=== PATIENT | female | born 1960 | race Caucasian/White ===

== ENCOUNTER 2020-05-16 12:15 | Outpatient (REF) | payer OTHER, SELFPAY ==
--- NOTE | 2020-05-16 | MM_ITS ---
EXAMINATION: MM SCREENING DIGITAL BREAST TOMOSYNTHESIS, BILATERAL CLINICAL INFORMATION: Screening. Asymptomatic. The lifetime risk of breast cancer based on the Tyrer-Cuzick Model is 7%. COMPARISON: Mammography: 03/16/2019, 03/15/2018 TECHNIQUE: Digital breast tomosynthesis is performed in both the craniocaudal and mediolateral oblique views along with computer-aided detection (CAD). Synthesized 2D images are generated from the tomosynthesis. FINDINGS: There are scattered areas of fibroglandular density (ACR BI-RADS breast composition Category b). There are no significant masses, abnormal calcifications, or other abnormalities. Parenchymal pattern is similar to prior studies. There is no significant change. The axilla and skin contours are unremarkable. IMPRESSION: No mammographic evidence of malignancy. ASSESSMENT: BI-RADS 1: Negative RECOMMENDATION: Routine annual mammography screening. This patient's information was entered into a reminder system with a target due date for their next mammogram.
== END 2020-05-16 12:16 | disposition home or self-care (01) ==
LOC: HO.MAMMO 12:15
PROVIDERS: Visit Provider Obstetrics & Gynecology
DX: Z12.31 Encounter for screening mammogram for malignant neoplasm of breast (principal)
CPT/HCPCS: 77063; 77067; 78014

== ENCOUNTER 2021-05-27 08:36 | Outpatient (REF) | payer OTHER, SELFPAY ==
--- NOTE | ~2021-05-27 | MM_ITS ---
EXAMINATION: MM SCREENING DIGITAL BREAST TOMOSYNTHESIS, BILATERAL CLINICAL INFORMATION: Screening. Asymptomatic. The lifetime risk of breast cancer based on the Tyrer-Cuzick Model is 6.0%. COMPARISON: Mammography: May 16, 2020 and studies dating back to July 11, 2014 TECHNIQUE: Digital breast tomosynthesis is performed in both the craniocaudal and mediolateral oblique views along with computer-aided detection (CAD). Synthesized 2D images are generated from the tomosynthesis. FINDINGS: There are scattered areas of fibroglandular density (ACR BI-RADS breast composition Category b). There are no significant masses, abnormal calcifications, or other abnormalities. MM/MM tomosynthesis screening BI IMPRESSION: There are no significant changes from prior study. ASSESSMENT: BI-RADS 1: Negative RECOMMENDATION: Routine annual mammography screening. This patient's information was entered into a reminder system with a target due date for their next mammogram.
== END 2021-05-27 08:37 | disposition home or self-care (01) ==
LOC: HO.MAMMO 08:36
PROVIDERS: Visit Provider Obstetrics & Gynecology
DX: Z12.31 Encounter for screening mammogram for malignant neoplasm of breast (principal)
CPT/HCPCS: 77063; 77067

== ENCOUNTER 2022-06-02 08:10 | Outpatient (REF) | payer OTHER, SELFPAY ==
--- NOTE | ~2022-06-02 | MM_ITS ---
EXAMINATION: MM SCREENING DIGITAL BREAST TOMOSYNTHESIS, BILATERAL CLINICAL INFORMATION: Screening. Asymptomatic. The lifetime risk of breast cancer based on the Tyrer-Cuzick Model is 6%. COMPARISON: Mammography: 05/27/2021, 05/16/2020, 03/16/2019 TECHNIQUE: Digital breast tomosynthesis is performed in both the craniocaudal and mediolateral oblique views along with computer-aided detection (CAD). Synthesized 2D images are generated from the tomosynthesis. FINDINGS: There are scattered areas of fibroglandular density (ACR BI-RADS breast composition Category b). Parenchymal pattern is similar to prior studies. There is no developing density or interval mass or architectural abnormality. The calcifications are similar to prior studies. The axilla and skin contours are unremarkable. No significant changes. MM/MM tomosynthesis screening BI IMPRESSION: No mammographic evidence of malignancy. ASSESSMENT: BI-RADS 2: Benign RECOMMENDATION: Routine annual mammography screening. This patient's information was entered into a reminder system with a target due date for their next mammogram.
--- NOTE | ~2022-06-02 | MM_ITS ---
EXAMINATION: BONE DENSITOMETRY CLINICAL INDICATION: Menopause. COMPARISON: None (current study represents initial baseline exam). TECHNIQUE: Using a [employer] DXA System (software version: 13.1) manufactured by [employer], dual-energy x-ray absorptiometry was performed of the lumbar spine and left hip. The images are of good technical quality. Summary results are attached. FINDINGS: AP SPINE L1-L2 (excluding L3 and L4): The data of L1-L4 has been changed to exclude the L3 and L4 vertebral bodies, because degenerative changes at these levels may cause overestimation of lumbar spine density. BMD 0.980 g/cm2, Z-score 0.1, T-score -1.5, osteopenia. LEFT FEMUR, NECK: BMD 0.654 g/cm2, Z-score -1.3, T-score -2.8, osteoporosis. LEFT FEMUR, TOTAL: BMD 0.705 g/cm2, Z-score -1.2, T-score -2.4, osteopenia. IDENTIFIED RISK FACTORS: Height loss, menopause, hysterectomy, bilateral oophorectomy. HISTORY OF FRACTURE: None listed. MEDICATIONS: Calcium supplements or multivitamin, vitamin D. MM/XR DEXA axial skeleton IMPRESSION: 1. DIAGNOSIS: Osteoporosis based on the lowest T-score value of -2.8 in the femoral neck applying World Health Organization criteria. 2. 10-YEAR FRACTURE RISK PREDICTION, FRAX: According to the guidelines, FRAX calculation should only be performed on patients in the osteopenia bone density category. Therefore, FRAX was not performed on this patient. 3. Treatment Recommendations: NOF guidelines recommend consideration for treatment in postmenopausal women and men age 50 and older presenting with the following: -A hip or vertebral (clinical or morphometric) fracture. -T-score less than or equal to -2.5 at the femoral neck or spine after appropriate evaluation to exclude secondary causes. -Low bone mass at the hip or spine and a 10-year fracture probability by FRAX of greater than or equal to 3% for hip fracture or greater than or equal to 20% for major osteoporotic fracture based on the [place] adapted WHO algorithm. 4. Other Recommendations: All treatment decisions require clinical judgment and consideration of individual patient factors, including patient preferences, comorbidities, previous drug use, risk factors not captured in the FRAX model (e.g. frailty, falls, vitamin D deficiency, increased bone turnover, interval significant decline in bone density) and possible under or overestimation of fracture risk by FRAX. Additional medical evaluation for secondary cause of low bone mineral density may be appropriate. FUTURE SCAN RECOMMENDATION: People with diagnosed cases of osteoporosis or at high risk for fracture should have regular bone mineral density tests. For patients eligible for Medicare, routine testing is allowed once every 2 years. The testing frequency can be increased to one year for patients who have rapidly progressing disease, those who are receiving or discontinuing medical therapy to restore bone mass, or have additional risk factors.
== END 2022-06-02 08:11 | disposition home or self-care (01) ==
LOC: HO.MAMMO 08:10
PROVIDERS: PCP Internal Medicine; Visit Provider Obstetrics & Gynecology
DX: Z12.31 Encounter for screening mammogram for malignant neoplasm of breast (principal); Z13.820 Encounter for screening for osteoporosis; N95.8 Other specified menopausal and perimenopausal disorders; Z78.0 Asymptomatic menopausal state
CPT/HCPCS: 77063; 77067; 77080

== ENCOUNTER 2023-06-08 08:04 | Outpatient (REF) | payer OTHER, SELFPAY ==
--- NOTE | ~2023-06-08 | MM_ITS ---
EXAMINATION: MM SCREENING DIGITAL BREAST TOMOSYNTHESIS, BILATERAL CLINICAL INFORMATION: Screening. Asymptomatic. COMPARISON: Mammography: This study is compared with prior exams dating back to 2017. TECHNIQUE: Digital breast tomosynthesis is performed in both the craniocaudal and mediolateral oblique views along with computer-aided detection (CAD). Synthesized 2D images are generated from the tomosynthesis. FINDINGS: There are scattered areas of fibroglandular density (ACR BI-RADS breast composition Category b). There are no significant masses, abnormal calcifications, or other abnormalities. Few, benign, unchanged calcifications are present in each breast. MM/MM tomosynthesis screening BI IMPRESSION: No mammographic evidence of malignancy. ASSESSMENT: BI-RADS BI-RADS 2 - Benign Findings RECOMMENDATION: Routine annual mammography screening. 1 year F/U This examination should not preclude the clinical evaluation of a suspicious palpable abnormality. This patient's information was entered into a reminder system with a target due date for their next mammogram.
== END 2023-06-08 08:05 | disposition home or self-care (01) ==
LOC: HO.MAMMO 08:04
PROVIDERS: PCP Internal Medicine; Visit Provider Internal Medicine
DX: Z12.31 Encounter for screening mammogram for malignant neoplasm of breast (principal)
CPT/HCPCS: 77063; 77067

== ENCOUNTER → 2023-06-08 08:15 | Outpatient (BNV) | payer OTHER, SELFPAY | PROVIDERS: PCP Internal Medicine; Visit Provider Radiology Diagnostic Radiology | DX: Z12.31 Encounter for screening mammogram for malignant neoplasm of breast (principal) | CPT/HCPCS: 77063; 77067 ==

== ENCOUNTER 2024-06-08 09:36 | Outpatient (REF) | payer OTHER, SELFPAY ==
--- NOTE | ~2024-06-08 | MM_ITS ---
EXAMINATION: MM SCREENING DIGITAL BREAST TOMOSYNTHESIS, BILATERAL CLINICAL INFORMATION: Screening. Asymptomatic. COMPARISON: Mammography: Comparison is made with available priors TECHNIQUE: Digital breast mammography with tomosynthesis is performed in both the craniocaudal and mediolateral oblique views along with computer-aided detection (CAD). FINDINGS: The breasts are heterogeneously dense, which may obscure small masses (ACR BI-RADS breast composition Category c). Left: There are no significant masses, abnormal calcifications, or other abnormalities. Right: Grouped calcifications upper inner breast posterior depth. No suspicious other abnormal findings. MM/MM tomosynthesis screening BI IMPRESSION: Additional imaging is recommended ASSESSMENT: BI-RADS BI-RADS 0 - Incomplete: Needs additional Imaging. RECOMMENDATION: 1. Additional views of the right breast with magnification views. 2. Targeted ultrasound if warranted after review of the additional views. 3. Radiology department staff will contact the patient for additional imaging. Additional Imaging required This examination should not preclude the clinical evaluation of a suspicious palpable abnormality. This patient's information was entered into a reminder system with a target due date for their next mammogram. Electronically signed by: Ana Palomo DO 06/19/2024 04:15 PM [facility]
--- NOTE | ~2024-06-08 | MM_ITS ---
EXAMINATION: BONE DENSITOMETRY CLINICAL INDICATION: Menopause. COMPARISON: Baseline BD dated 06/02/2022. TECHNIQUE: Using a [employer] DXA System (software version: 13.1) manufactured by [employer], dual-energy x-ray absorptiometry was performed of the lumbar spine and left hip. The images are of good technical quality. Summary results are attached. FINDINGS: LEFT FEMUR, NECK: Current: BMD 0.695 g/cm2, Z-score -0.7, T-score -2.5, osteoporosis. Baseline: BMD 0.654 g/cm2. LEFT FEMUR, TOTAL: Current: BMD 0.731 g/cm2, Z-score -0.7, T-score -2.2, osteopenia, 3.7% increase from baseline (<5% change is not significant). Baseline: BMD 0.705 g/cm2. AP SPINE L1-L2 (excluding L3 and L4): The data of L1-L4 has been changed to exclude the L3 and L4 vertebral bodies, because significant degenerative change at these levels may cause overestimation of lumbar spine density. Current: BMD 0.925 g/cm2, Z-score 0.1, T-score -2.0, osteopenia, 5.6% decrease from baseline (<5% change is not significant). Baseline: BMD 0.980 g/cm2. IDENTIFIED RISK FACTORS: Menopause, height loss, hysterectomy, low calcium intake, bilateral oophorectomy, secondary osteoporosis (partial gastrectomy). HISTORY OF FRACTURE: None listed. MEDICATIONS: Calcium or multivitamin. Vitamin D. MM/XR DEXA axial skeleton IMPRESSION: 1. DIAGNOSIS: Osteoporosis based on the lowest T-score value of -2.5 in the femoral neck applying World Health Organization criteria. 2. 10-YEAR FRACTURE RISK PREDICTION, FRAX: According to the guidelines, FRAX calculation should only be performed on patients in the osteopenia bone density category. Therefore, FRAX was not performed on this patient. 3. Treatment Recommendations: NOF guidelines recommend consideration for treatment in postmenopausal women and men age 50 and older presenting with the following: -A hip or vertebral (clinical or morphometric) fracture. -T-score less than or equal to -2.5 at the femoral neck or spine after appropriate evaluation to exclude secondary causes. -Low bone mass at the hip or spine and a 10-year fracture probability by FRAX of greater than or equal to 3% for hip fracture or greater than or equal to 20% for major osteoporotic fracture based on the [place] adapted WHO algorithm. 4. Other Recommendations: All treatment decisions require clinical judgment and consideration of individual patient factors, including patient preferences, comorbidities, previous drug use, risk factors not captured in the FRAX model (e.g. frailty, falls, vitamin D deficiency, increased bone turnover, interval significant decline in bone density) and possible under or overestimation of fracture risk by FRAX. Additional medical evaluation for secondary cause of low bone mineral density may be appropriate. FUTURE SCAN RECOMMENDATION: People with diagnosed cases of osteoporosis or at high risk for fracture should have regular bone mineral density tests. For patients eligible for Medicare, routine testing is allowed once every 2 years. The testing frequency can be increased to one year for patients who have rapidly progressing disease, those who are receiving or discontinuing medical therapy to restore bone mass, or have additional risk factors. Electronically signed by: Carmella Riley MD 06/09/2024 03:18 PM EDT RP
== END 2024-06-08 09:37 | disposition home or self-care (01) ==
LOC: HO.MAMMO 09:36
PROVIDERS: PCP Internal Medicine; Visit Provider Obstetrics & Gynecology
DX: Z12.31 Encounter for screening mammogram for malignant neoplasm of breast (principal); Z13.820 Encounter for screening for osteoporosis; Z78.0 Asymptomatic menopausal state
CPT/HCPCS: 77063; 77067; 77080

== ENCOUNTER → 2024-06-08 09:45 | Outpatient (BNV) | payer OTHER, SELFPAY | PROVIDERS: PCP Internal Medicine; Visit Provider Internal Medicine | DX: Z12.31 Encounter for screening mammogram for malignant neoplasm of breast (principal) | CPT/HCPCS: 77063; 77067 ==

== ENCOUNTER 2024-07-12 12:41 | Outpatient (REF) | payer OTHER, SELFPAY ==
--- NOTE | ~2024-07-12 | MM_ITS ---
EXAMINATION: MM DIAGNOSTIC DIGITAL BREAST TOMOSYNTHESIS, RIGHT CLINICAL INFORMATION: Call back from screening for grouped calcifications in the right breast. COMPARISON: Mammography: Comparison is made with available prior examinations. TECHNIQUE: Digital breast tomosynthesis is performed in both the craniocaudal and mediolateral oblique views along with computer-aided detection (CAD). Synthesized 2D images are generated from the tomosynthesis. FINDINGS: There are scattered areas of fibroglandular density (ACR BI-RADS breast composition Category b). Grouped amorphous calcifications in the upper inner breast on magnification views are increased from prior. No suspicious masses or other abnormal findings. MM/MM tomosynthesis added views R IMPRESSION: Grouped amorphous calcifications upper inner breast increased from priors. Recommend histology with stereotactic core needle biopsy at this time. The findings and recommendations were discussed with the patient the procedure will be scheduled. ASSESSMENT: BI-RADS BI-RADS 4 - Suspicious finding RECOMMENDATION: Biopsy recommended Results were discussed with the patient at time of visit. This patient's information was entered into a reminder system with a target due date for their next mammogram. Electronically signed by: Ana Palomo DO 07/12/2024 01:34 PM [facility]
== END 2024-07-12 12:42 | disposition home or self-care (01) ==
LOC: HO.MAMMO 12:41
PROVIDERS: PCP Internal Medicine; Visit Provider Obstetrics & Gynecology
DX: R92.8 Other abnormal and inconclusive findings on diagnostic imaging of breast (principal)
CPT/HCPCS: 77061; 77065

== ENCOUNTER → 2024-07-12 13:00 | Outpatient (BNV) | payer OTHER, SELFPAY | PROVIDERS: PCP Internal Medicine; Visit Provider Internal Medicine | DX: R92.321 Mammographic fibroglandular density, right breast (principal); R92.1 Mammographic calcification found on diagnostic imaging of breast | CPT/HCPCS: 77061; 77065 ==

== ENCOUNTER 2024-08-03 07:52 | Outpatient (REF) | payer OTHER, SELFPAY ==
--- NOTE | ~2024-08-03 | MM_ITS ---
EXAMINATION: STEREOTACTICALLY-GUIDED RIGHT BREAST BIOPSY CLINICAL INFORMATION: Right breast upper inner calcifications. COMPARISON: Comparison is made with available prior examinations. INFORMED CONSENT: After the details of the procedure, as well as the risks (including, but not limited to, bleeding, hematoma formation, and infection), benefits and alternatives (including doing nothing, short-interval follow up, and surgery) to the procedure were explained to the patient in detail and all of her questions were answered, informed written consent was obtained. TECHNIQUE/FINDINGS: A timeout was performed. The lesion intended for biopsy was identified stereotactically and targeted. The skin of the right breast was then cleansed with sterile solution. Using stereotactic guidance, aseptic technique, and 1% lidocaine with and without epinephrine for local anesthesia, a total of 12 cores were obtained through the targeted area with a 9-gauge vacuum-assisted Eviva core biopsy device from a medial approach. Specimen radiography reveals the targeted calcifications in the sampled tissue. At the completion of tissue sampling, a single top hat-shaped metallic clip was deposited at the biopsy site. Adequate sampling was achieved. The postprocedure 2-view direct digital mammogram reveals positioning of the biopsy clip to be 1 cm anterior and medial to the original biopsy site. The patient tolerated the procedure well and, after assuring adequate hemostasis, was discharged in good condition after reviewing postbiopsy breast care instructions. Final pathology results are pending. MM/MM stereotactic biopsy RT IMPRESSION: 1. Uncomplicated stereotactically-guided core biopsy of the right breast. The 2-view direct digital postprocedure mammogram reveals positioning of the biopsy clip to be slightly displaced anterior and medial. 2. Final pathology results are pending. A separate report with final recommendations will be issued once these results are made available. Electronically signed by: Ana Palomo DO 08/03/2024 11:47 AM [facility]
[2024-08-03] MEDS: Lidocaine HCl 1 % 20 ML VIAL 12 ML SUBCUT (11:37)
[2024-08-03] MEDS: Lidocaine HCl 1%/Epi 1:100,000 10 ML VIAL 4 ML SUBCUT (11:39)
[2024-08-03] MEDS: Sodium Bicarbonate 8.4% 50 MEQ/50 ML VIAL SUBCUT (11:40)
== END 2024-08-03 07:53 | disposition home or self-care (01) ==
LOC: HO.MAMMO 07:52
PROVIDERS: Absent Provider Obstetrics & Gynecology; PCP Internal Medicine; Visit Provider Internal Medicine
DX: R92.1 Mammographic calcification found on diagnostic imaging of breast (principal); R92.8 Other abnormal and inconclusive findings on diagnostic imaging of breast
CPT/HCPCS: 19081; 88305; A4648; J2003; J2004

== ENCOUNTER → 2024-08-03 08:00 | Outpatient (BNV) | payer OTHER, SELFPAY | PROVIDERS: Absent Provider Obstetrics & Gynecology; PCP Internal Medicine; Visit Provider Internal Medicine | DX: R92.1 Mammographic calcification found on diagnostic imaging of breast (principal) | CPT/HCPCS: 19081; 77065 ==

== ENCOUNTER → 2025-05-07 09:23 | Outpatient (BNVA) | payer OTHER, SELFPAY | PROVIDERS: PCP Internal Medicine; Visit Provider Emergency Medicine | DX: G57.01 Lesion of sciatic nerve, right lower limb (principal) | CPT/HCPCS: 99202 ==

== ENCOUNTER → 2025-05-14 09:45 | Outpatient (BNVA) | payer OTHER, SELFPAY | PROVIDERS: PCP Internal Medicine; Visit Provider Emergency Medicine | DX: G57.01 Lesion of sciatic nerve, right lower limb (principal) | CPT/HCPCS: 99213 ==

== ENCOUNTER → 2025-05-18 10:34 | Outpatient (BNVA) | payer OTHER, SELFPAY | PROVIDERS: PCP Internal Medicine; Visit Provider Emergency Medicine | DX: G57.01 Lesion of sciatic nerve, right lower limb (principal); Z02.79 Encounter for issue of other medical certificate | CPT/HCPCS: 99213 ==

== ENCOUNTER 2025-06-14 09:27 | Outpatient (REF) | payer OTHER, SELFPAY ==
--- OUTSIDE RECORDS SUMMARY | 2025-06-14 10:52 | XMS_ITS | Encounter Summary ---
Author Organization [facility], Address [address] [place] [address] Phone Care Team Providers Care Painter Set Name Role Phone Steven Bowling MD Primary Care Provider [phone] Encounter Details Date Type Department Care Team (Late st Contact Info) Description 02/04/2023 Documentation Only [facility], [address] [place] [address] Steven Bowling MD [address] [place] [address] [place] [phone] Social History Tobacco Use Types Packs/Day Years Used Date Smoking Tobacco: Never Assessed Comments Unknown Sex and Gender Information Value Date Recorded Sex Assigned at Not on file Legal Sex Female 11:19 AM EDT Gender Identity Not on file Sexual Orientation Not on file documented as of this encounter Plan of Treatment Not on file documented as of this encounter Visit Diagnoses Not on filedocumented in this encounter Care Teams Painter Set Relationship Specialty Start Date End Date Steven Bowling MD [address] [place] [address] [place] [phone] PCP - General Nephrology 02/03/23 documented as of this encounter
--- OUTSIDE RECORDS SUMMARY | 2025-06-14 10:52 | XMS_ITS | Encounter Summary ---
Author Organization [facility], Address [address] [place] [address] Phone Care Team Providers Care Cloth Mercerizer Operator Name Role Phone Steven Bowling MD Primary Care Provider [phone] Encounter Details Date Type Department Care Team (Late st Contact Info) Description 02/04/2023 Documentation Only [facility], [address] [place] [address] Steven Bowling MD [address] [place] [address] [place] [phone] Social History Tobacco Use Types Packs/Day Years [...] on filedocumented in this encounter Care Teams Cloth Mercerizer Operator Relationship Specialty Start Date End Date Steven Bowling MD [address] [place] [address] [place] [phone] PCP - General Nephrology 02/03/23 documented as of this encounter
--- OUTSIDE RECORDS SUMMARY | 2025-06-14 10:52 | XMS_ITS | Encounter Summary ---
Author Organization [facility], Address [address] [place] [address] Phone Care Team Providers Care Industrial Hygenist Name Role Phone Steevn Bowling MD Primary Care Provider [phone] Encounter Details Date Type Department Care Team (Late st Contact Info) Description 02/04/2023 Documentation Only [facility], [address] [place] [address] Steven Bowling MD [address] [place] [address] [place] [phone] Social History Tobacco Use Types Packs/Day Years [...] on filedocumented in this encounter Care Teams Industrial Hygenist Relationship Specialty Start Date End Date Steven Bowling MD [address] [place] [address] [place] [phone] PCP - General Nephrology 02/03/23 documented as of this encounter
--- OUTSIDE RECORDS SUMMARY | 2025-06-14 10:52 | XMS_ITS | Clinical Summary ---
Author Organization [facility] Address [address] [address] Care Team Providers Care Dopeman Name Role Phone Steven Bowling MD Primary Care Provider [phone] Allergies No known active allergies Medications ARIPiprazole (ABILIFY) 2 MG tablet Take 2 mg by mouth 1 (one) time each day Active aspirin (ST RIGO) 81 MG EC tablet Take 81 mg by mouth 1 (one) time each day Active atorvastatin (LIPITOR) 80 MG tablet Take 80 mg by mouth 1 (one) time each day Active Dulaglutide (Trulicity) 1.5 MG/0.5ML solution pen-injector Inject under the skin Active escitalopram (LEXAPRO) 20 MG tablet Take 20 mg by mouth 1 (one) time each day Active gabapentin (NEURONTIN) 100 MG capsule Take 100 mg by mouth in the morning and 100 mg in the evening and 100 mg before bedtime. Active lisinopril 5 MG tablet Take 5 mg by mouth 1 (one) time each day Active LORazepam (ATIVAN) 0.5 MG tablet Take 0.5 mg by mouth every 6 (six) hours if needed for anxiety Active metFORMIN (GLUCOPHAGE) 1000 MG tablet Take 1,000 mg by mouth in the morning and 1,000 mg in the evening. Take with meals. Active pioglitazone (ACTOS) 45 MG tablet Take 45 mg by mouth 1 (one) time each day Active topiramate (TOPAMAX) 25 MG tablet Take 25 mg by mouth in the morning and 25 mg in the evening. Active Active Problems Problem Noted Date Diagnosed Date Gastroesophageal reflux disease 02/04/2023 Essential hypertension 02/04/2023 Iron deficiency anemia 02/04/2023 Nephrolithiasis 02/04/2023 Type 2 diabetes mellitus 02/17/2017 Immunizations Immunization Administration Dates Next Due DTaP 07/23/2010 Hep B, Unspecified 10/05/2006,05/05/2006, 006 Influenza Whole 06/24/2005 Influenza, Quadrivalent, Wit h Preservative 06/17/2021,05/02/2020,05/16/2019,05/02,05/17/2017,06/16/2016 Influenza, Unspecified 04/28/2022,2020,06/03/2021,05/02,04/21/2020,05/23/2019,04/24/2018 ,05/17/2017,06/16/2016,06/16/2015,08/2014,05/16/2014,06/16/2013, 3,07/06/2007,10/05/2006 Pfizer SARS-COV-2 06/03/2021,,09/14/2020,09/14 Pneumococcal Polysaccharide 12/18/2004 Rabies, Unspecified 04/14/2006,03/31/2006,2005 SARS-CoV-2, Unspecified 06/18/2022 Shingrix 12/06/2019,09/26/2019 Td, Unspecified 07/28/1999 Tdap 03/25/2021,11/24/2010 Social History Tobacco Use Types Packs/Day Years Used Date Smoking Tobacco: Never Assessed Comments Unknown Sex and Gender Information Value Date Recorded Sex Assigned at Not on file Legal Sex Female 11:19 AM EDT Gender Identity Not on file Sexual Orientation Not on file Plan of Treatment Health Maintenance Due Date Last Done Comments Breast Cancer Screening 1961 Colorectal Cancer Screening: Annual FOBT 2010 Colorectal Cancer Screening: Colonoscopy 2010 Colorectal Cancer Screening: Sigmoidoscopy 2010 Pneumococcal Vaccine: 50+ Years (2 of 2 - PCV) 2011 12/18/2004 Diabetes: Hemoglobin A1C 01/13/2023 Diabetes: Ophthalmology Exam 01/13/2023 Diabetes: Pedal Pulse Checked 01/13/2023 Diabetes: Sensory Foot Exam 01/13/2023 Diabetes: Visual Foot Exam 01/13/2023 Influenza Vaccine (#1) 2025 2, 06/17/2021, 06/17/2021, Additional history exists Pneumococcal Vaccine: Peds (0 to 5 Years) and At-Risk Patients (6 to 49 Years) Discontinued 12/18/2004 Hepatitis B Vaccine Aged Out 10/05/2006, 05/05/2006, 04/08/2006 No longer eligible based on patient's age to complete this topic Insurance [facility] Care Teams Dopeman Relationship Specialty Start Date End Date Steven Bowling MD [address] [place] [address] [place] [phone] PCP - General Nephrology 02/03/23
--- OUTSIDE RECORDS SUMMARY | 2025-06-14 10:52 | XMS_ITS | Encounter Summary ---
Author Organization [facility], Address [address] [place] [address] Phone Care Team Providers Care Pharmacist Name Role Phone Steven Bowling MD Primary Care Provider [phone] Encounter Details Date Type Department Care Team (Late st Contact Info) Description 02/04/2023 Documentation Only [facility], [address] [place] [address] Steven Bowling MD [address] [place] [address] Dr[place] [phone] Social History Tobacco Use Types Packs/Day Years [...] on filedocumented in this encounter Care Teams Pharmacist Relationship Specialty Start Date End Date Steven Bowling MD [address] [place] [address] [place] [phone] PCP - General Nephrology 02/03/23 documented as of this encounter
--- OUTSIDE RECORDS SUMMARY | 2025-06-14 10:52 | XMS_ITS | Data Portability ---
Author Organization [place] [facility],, CITLALLI PERRY MD Address [address] [address] Care Team Providers Care Tail Worker Name Role Phone HEATHER GOODMAN Primary Care Provider Assessment No assessment recorded. Plan of Treatment Reminders Order Date Submit Date Provider Last Modified By Organization Details Last Modified Time Details Appointments None recorded. Lab cytology report, thin prep, smear or scraping, cervical or vaginal 2024 025 ELVA [facility] (Centralized Electronic Ordering - All Locations), Patient Can Go To The Location Of Their Choice, [id number] 5 16:16:24 hemoglobin , gastrointe stinal, stool 2024 025 [email or web address] 1 In-Office Order, Internal Use Only DO Not Attach Compendium DO Not Attach Compendium, Do Not Delete/merge, [id number] 09:27:07 cytology report, thin prep, smear or scraping, cervical or vaginal 2023 024 ELVA [facility] (Centralized Electronic Ordering - All Locations), Patient Can Go To The Location Of Their Choice, [id number] 4 16:06:17 hemoglobin , gastrointe stinal, stool 2023 024 [email or web address] 1 In-Office Order, Internal Use Only DO Not Attach Compendium DO Not Attach Compendium, Do Not Delete/merge, [id number] 08:31:31 pap, LB, vaginal 2022 023 [facility] (Centralized Electronic Ordering - All Locations), Patient Can Go To The Location Of Their Choice, [id number] 3 07:31:50 fecal occult blood, stool 2022 023 [email or web address] 1 In-Office Order, Internal Use Only DO Not Attach Compendium DO Not Attach Compendium, Do Not Delete/merge, [id number] 3 08:42:43 Referral None recorded. Procedures None recorded. Surgeries None recorded. Imaging MAMMO, screening, digital, bilateral - Breast Aspiration and/or Biopsy if needed 2024 025 [facility] Orders, [address], [address], [place], [address], 5 11:18:55 bone density 2023 024 [facility] (Imaging), [address] [place] [address], [id number], 4 15:22:02 MAMMO, screening, digital, bilateral - Breast Aspiration and/or Biopsy if needed 2023 024 [facility] (Imaging), [address] [place] [address], [address], 4 16:21:19 MAMMO, screening, digital, bilateral - Breast Aspiration and/or Biopsy if needed 2022 023 [facility] [address] [place] [address], [address], 4 07:53:34 Medication Orders cephalexin 500 mg capsule 2023 025 [facility] #[id number], [address], [place], [address], 5 11:16:10 Patient TargetsNo targets recorded. Patient Instructions Encounter Date Encounter Id Patient Instructions Last Modified By Organization Details Last Modified Time 02/10/2023 [id number] learning about healthy weight Not available 02/10/2023 08:42:43 She is here for annual, had acute renal failure and was in hospital 2 months ago in the ICU, they felt it was due to taking ibuprophen. she had dialysis. Was out of work for 4 weeks, just went back to work 2 days ago. IS feeling better. Her SALES MANAGER [place] at the oncology office advised her to stop the oral progesterone. She is not sleeping at all now. __ Note from 2021: She is here for annual exam, doing well after her hysterectomy for mixed call endometrial cancer. Her electronic scale subassembler oncologist approved for her to continue her oral progesterone as she needs it to sleep. She appears to be doing well. Life issues discussed. Monthly self breast exam was taught, and stressed, and is advised to call if she discovers any new mass in the breast. Not available 02/10/2023 08:42:39 02/14/2024 [id number] learning about healthy weight Not available 02/14/2024 08:26:48 She is here for annual, has started trulicity, as the Jardiance was causing dizziness, this seems to be working better for her. She had a hysterectomy with Dr. 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 She had 6 rounds or Rtx. She was out of work from March to June. She started having 2 to 3 hot flashes a day a few months ago, it has decreased to a few a week, she is unsure why. Note from 2022: She is here for annual, had acute renal failure and was in hospital 2 months ago in the ICU, they felt it was due to taking ibuprophen. she had dialysis. Was out of work for 4 weeks, just went back to work 2 days ago. IS feeling better. Her SALES MANAGER [place] at the oncology office advised her to stop the oral progesterone. She is not sleeping at all now. She appears to be doing well. She is advised to contact her PCP abut the hot flashes as they do not appear to be menopausal. Monthly self breast exam was taught, and stressed, and is advised to call if she discovers any new mass in the breast. Not available 02/14/2024 08:31:26 03/24/2024 [id number] cellulitis: care instructions [email or web address] Not available 03/24/2024 10:41:07 She noted a bump on her vulva 2 days ago, it is slowly getting larger. It is slightly tender, noticeable . She sarah not remember any injury in this area. she has been scratching her inner thighs bilaterally due to bug bites. She does not feel ill, has no fevers or chills. She has a past history of uterine cancer, with a mixed cell carcinoma of the endometrium: clear cell 60% and endometrioid carcinoma 40%. This mass does not presently appear to be related to her prior electronic scale subassembler cancer. on exam: left lower vulva above and lateral to the anus there is a 3 cm wide, 0.5 cm deep, induration. There is no erythema. It is slightly tender. There is no break in the skin, it is not pointing. The mass appears to be a cellulitis, superficial, not deep, not pointing. It is not necessarily electronic scale subassembler related, other than the location. It is not a Bartholin's. It does not appear to be a spider bite. Will rx with oral keflex 500 mg TID for a week, she is advised that if it worsens she should go to her PCP or a walk in clinic. There is no way to take a culture, it is not pointing. Face to face discussion, chart review, coordination of care: 25 minutes Not available 03/24/2024 10:54:56 08/21/2024 [id number] She is here at the request of her PCP. She called their office ,and she informed then she had a hematoma on her right breast following her breast biopsy done at [facility] on 08/01/24, and she was advised to call her electric screw driver operator. She notes the mass is the same size now as it was 3 weeks ago. Denies fever or chills. On exam: there is a 7 cm, irregular, hard mass in the right breast at te 9 to 12 o'clock just above the areolae, it is tender, firm, and slightly mobile. It is not pointing. There is ecchymosis around it She is advised that she appears to have a hematoma after biopsy. She is advised to contact [facility] radiology department, let them know, and ask them to have one of the breast surgeons there see her for guidance. She is advised that they may not do anything, and just wait for it to resorb, it is up to them. She understands and agrees. At present there is no sign of infection. Not available 08/21/2024 12:28:14 03/19/2025 [id number] learning about healthy weight Not available 03/19/2025 09:27:07 She is here for annual, it is now 5 years since her mixed cell carcinoma endometrial cancer, she is doing well. _ Note from 2023: She is here for annual, has started trulicity, as the Jardiance was causing dizziness, this seems to be working better for her. She had a hysterectomy with Dr. 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 She had 6 rounds or Rtx. She was out of work from March to June. She started having 2 to 3 hot flashes a day a few months ago, it has decreased to a few a week, she is unsure why. __ She appears to be doing well. Monthly self breast exam was taught, and stressed, and is advised to call if she discovers any new mass in the breast. Not available 03/19/2025 09:27:19 Reason for Referral None Reported. Results Created Date Observation Date Name Description Value Unit Range Abnormal Flag Note LastModifiedBy Organization Detail LastModifiedTime 02/11/20 23 02/10/2023 [facility] OGY results Ted brito Name: ZOFIA SUNNI PERNELL Stanley brito : [id number] (Age: 62) Lab Acces carline #: [id number] Colle ction Date: 2022 Acces carline Date: 2022 Sign Out Date: 2022 Tissu e Sourc e: 1: THINP REP ROLLER TURNER PAP TEST, VAGIN AL: Final Diagn osis: NEGAT ANDRE FOR INTRA EPITH ELIAL LESIO N OR MALIG DUNG . Acute infla mmato ry cells prese nt. Satis facto ry for evalu ation . Endoc ervic al/tr ansfo rmati on zone ABSEN T. Clini lacie Histo ry: Date of Last Menst rual Perio d: not avail able Menst rual Histo ry: Hyste recto my: CERVI X REMOV ED Post- menop ausal Contr acept andre Histo ry: not avail able Ancil naida Testi ng: HPV (ASCU S) Case image d by the ThinP rep Imagi ng Syste m with lizett venegasr pipe g or silas w. Perfo rmed at [facility] ate Refer ence Labor atory depar tment of Cytol ogy, [address] [place] Clini lacie Histo ry (othe r): ROUTI NE, LPS 02/06 NEG, HX OF ENDOM ETRIA L CANCE R Phone #: [phone], On-Ca ll Patho logis t: [id number] Not Available [facility] (Centralized Electronic Ordering - All Locations) Patient Can Go To The Location Of Their Choice, [id number] 02/24/2023 11:35:08 02/11/20 23 02/10/2023 fecal occul t blood , stool Occult Blood negati ve Not Available In-Office Order Internal Use Only DO Not Attach Compendium DO Not Attach Compendium, Do Not Delete/merge, [id number] 02/10/2023 08:17:55 02/14/20 24 02/18/2024 IGP, RFX APTIM A HPV ASCU diagnosis: Commen t NEGAT ANDRE FOR INTRA EPITH ELIAL LESIO N OR MALIMTIAZ DUNG . Not Available [facility] [address] [facility], [place], [address], 02/18/2024 16:06:17 02/14/20 24 02/18/2024 IGP, RFX APTIM A HPV ASCU specimen adequacy: Sarath franks Satis facto ry for evalu ation . Not Available [facility] ([facility]) [address] [place], [address], 02/18/2024 16:06:17 02/14/20 24 02/18/2024 IGP, RFX APTIM A HPV ASCU clinician provided ICD10: Sarath franks Z01.4 19 Not Available [facility] ([facility]) [address] [place], [address], 02/18/2024 16:06:17 02/14/20 24 02/18/2024 IGP, RFX APTIM A HPV ASCU performed by: Sarath mccullough, Princess franks (ASCP ) Not Available [facility] ([facility]) [address] [place], [address], 02/18/2024 16:06:17 02/14/20 24 02/18/2024 IGP, RFX APTIM A HPV ASCU . . Not Available [facility] ([facility]) [address] [place], [address], 02/18/2024 16:06:17 02/14/20 24 02/18/2024 IGP, RFX APTIM A HPV ASCU note: Sarath franks The Pap smear is a scree shin test desig chandni to aid in the detec tion of tobias ligna nt and malig nant condi tions of the uteri ne cervi x. It is not a diagn ostic proce dure and shoul d not be used as the sole means of detec ting cervi lacie cance r. Both false -posi tive and false -nega tive repor ts do occur . Not Available [facility] ([facility]) [address] [place], [address], 02/18/2024 16:06:17 02/14/20 24 02/18/2024 IGP, RFX APTIM A HPV ASCU test methodology: Commen t This liqui d based ThinP rep(R ) pap test was jovita tariq with the use of an image guide nellie yao Not Available [facility] ([facility]) [address] [facility], [place], [address], 02/18/2024 16:06:17 02/14/20 24 02/18/2024 IGP, RFX APTIM A HPV ASCU . Commen t The HPV DNA refle x crite teresita were not met with this speci men resul t there fore, no HPV testi ng was perfo rmed. Not Available [facility] ([facility]) [address] [facility], [place], [address], 02/18/2024 16:06:17 02/14/20 24 02/14/2024 hemog lobin , gastr ointe kareem l, stool Occult Blood negati ve Not Available In-Office Order Internal Use Only DO Not Attach Compendium DO Not Attach Compendium, Do Not Delete/merge, [id number] 02/14/2024 08:03:27 03/19/2003/20/2025 IGP, RFX APTIM A HPV ASCU diagnosis: Commen t NEGAT ANDRE FOR INTRA EPITH ELIAL LESIO N OR MAREN RAZO . Not Available [facility] ([facility]) [address] [facility], [place], [address], 03/20/2025 16:16:24 03/19/20 25 03/20/2025 IGP, RFX APTIM A HPV ASCU specimen adequacy: Commen t Satis facto ry for evalu ation . Not Available [facility] ([facility]) [address] [facility], [place], [address], 03/20/2025 16:16:24 03/19/20 25 03/20/2025 IGP, RFX APTIM A HPV ASCU clinician provided ICD10: Commen t Z01.4 19 Not Available [facility] ([facility]) [address] [facility], [place], [address], 03/20/2025 16:16:24 03/19/20 25 03/20/2025 IGP, RFX APTIM A HPV ASCU performed by: Sarath Olivares , Cytol ogist (ASCP ) Not Available [facility] [address] [facility], [place], [address], 03/20/2025 16:16:24 03/19/20 25 03/20/2025 IGP, RFX APTIM A HPV ASCU . . Not Available [facility] ([facility]) [address] [facility], [place], [address], 03/20/2025 16:16:24 03/19/20 25 03/20/2025 IGP, RFX APTIM A HPV ASCU note: Sarath franks The Pap smear is a scree shin test desimtiaz tariq to aid in the detec tion of tobias ligna nt and malig nant condi tions of the uteri ne cervi x. It is not a diagn ostic proce dure and shoul d not be used as the sole means of detec ting cervi lacie cance r. Both false -posi tive and false -nega tive repor ts do occur . Not Available [facility] ([facility]) [address] [facility], [place], [address], 03/20/2025 16:16:24 03/19/20 25 03/20/2025 IGP, RFX APTIM A HPV ASCU test methodology: Sarath franks This liqui d based ThinP rep(R ) pap test was scree chandni with the use of an image guide nellie yao Not Available [facility] ([facility]) [address] [facility], [place], [address], 03/20/2025 16:16:24 03/19/20 25 03/20/2025 IGP, RFX APTIM A HPV ASCU . Commen t The HPV DNA refle x crite teresita were not met with this speci men resul t there fore, no HPV testi ng was perfo rmed. Not Available [facility] ([facility]) [address] [facility], [place], [address], 03/20/2025 16:16:24 03/19/20 25 03/19/2025 hemog lobin , gastr ointe kareem l, stool Occult Blood negati ve Not Available In-Office Order Internal Use Only DO Not Attach Compendium DO Not Attach Compendium, Do Not Delete/merge, [id number] 03/19/2025 08:47:52 06/09/2006/08/2024 bone densi ty No observ ation record ed. [address] [place], [address], 06/12/2024 10:27:26 06/19/2006/08/2024 MAMMO , scree shin, digit al, bilat eral No observ [facility]ion [facility] [address] [place], [address], 06/23/2024 12:47:49 07/12/2007/12/2024 MAMMO , diagn ostic , digit al, unila teral No observ ation record ed. [address] [place], [address], 07/27/2024 10:29:40 08/15/20 24 08/03/2024 stere otact ic breas t biops y (PROC ) No observ ation record ed. [facility] (Mammo) [address] [place] [address] [place], [address], 08/15/2024 11:04:33 Result Notes None recorded. Problems Name Problem SNOMED Code Status Onset Date Resolution Date Notes Provider Name and Address Organization Details Recorded Time Mammograph y abnormal 702979400 Active Citlalli Perry MD [address], [place], [address], [place] [facility], 6 09:40:53 Amenorrhea 32697981 Active Citlalli Perry MD [address], [place], [address], [place] [facility], 6 09:40:53 Candidal vulvovagin itis 02767032 Active Citlalli Perry MD [address], [place], [address], [place] [facility], 6 09:40:53 Cervicovag inal cytology: Low grade squamous intraepith elial lesion 395232096 Active Citlalli Perry MD [address], [place], [address], [place] [facility], 6 09:40:53 Cytologic finding 292584979 Active Pap 02/2016 ASCUS with HR HPV , colpo 11/2015 negative for dysplasia, pap 11/2015 LGSIL. She has a past history of cervical dysplasia treated in 1996 with LEEP. She has had normal paps since then. She has had the same partner for 20 years, he may have had another partner 2 years ago. Citlalli Perry MD [address], [place], [address], [place] [facility], 9 08:26:38 Menopausal syndrome 459986781 Active Citlalli Perry MD [address], [place], [address], [place] [facility], 6 09:40:53 History of dysplasia of cervix 034606044 Active 1996 s/p LEEP, needs annual pap smear Citlalli Perry MD [address], [place], [address], [place] [facility], 6 09:40:53 Type 2 diabetes mellitus 80639667 Active 2016 Citlalli Perry MD [address], [place], [address], [place] [facility], 7 10:10:39 Hypertensi ve disorder 52306086 Active 2017 Pia emmanuel, [place] [facility], 8 09:55:28 Anxiety disorder 886026343 Active 2017 Citlalli Perry MD [address], [place], [address], [place] [facility], 8 10:17:21 Depressive disorder 90916451 Active 2017 Citlalli Perry MD [address], [place], [address], [place] [facility], 8 10:17:28 Cyst of ovary 85192011 Active 2017 Citlalli Perry MD [address], [place], [address], [place] [facility], 8 10:11:51 Malignant neoplasm of uterus 319715823 Active 2019 had a hysterecto my with Dr. Kirkpatrick in 03/2020 for mixed cell carcinoma of the endometriu m, clear cell carcinoma (60%) and also endometrio id carcinoma (40%). Citlalli Perry MD [address], [place], [address], [place] [facility], 1 09:03:33 History of malignant neoplasm of uterine body 369830188 Active 2021 Citlalli Perry MD [address], [place], [address], [place] [facility], 2 09:21:05 Osteoporos is 53235864 Active 2021 Citlalli Orlando , MD [address], [place], [address], [place] [facility], 2 13:06:42 Acute kidney injury 67089716 Active 2022 Arlen emmanuel [place] - [facility], 3 08:20:15 Problem Notes None recorded. Procedures Surgical History Date Name Laterality Status Provider Name and Address Organization Details Recorded Time 07/04/20 24 Most Recent Mammogram completed Pia Cowart [place] - [facility], 08/21/2024 11:18:25 04/25/20 20 Hernia repair w/mesh completed Arlen Perea [place] - [facility], 02/10/2021 08:25:57 03/18/20 20 hysterectomy completed Citlalli Perry MD [address], [place], [address], [place] - [facility], 02/10/2021 09:15:58 12/16/19 19 Colposcopy completed Citlalli Perry MD [address], [place], [address], [place] - [facility], 12/15/2018 09:54:25 02/24/20 17 Implanon Removal completed Citlalli Perry MD [address], [place], [address], [place] - [facility], 02/23/2017 14:51:24 04/15/20 16 Colposcopy completed Citlalli Perry MD [address], [place], [address], [place] - [facility], 04/15/2016 09:42:20 12/09/19 16 Colposcopy completed Citlalli Perry MD [address], [place], [address], [place] - [facility], 12/09/2015 09:42:24 01/29/20 15 IUD Removal completed Citlalli Perry MD [address], [place], [address], [place] - [facility], 01/28/2015 14:21:54 01/16/20 15 Implanon Insertion completed Citlalli Perry MD [address] [facility],[address], [place], [address], [place] - [facility], 01/15/2015 14:09:15 08/16/19 02 Other completed Pia Mecneerajjairwor [place] - [facility], 10/25/2013 07:59:40 08/16/18 97 Other completed Pia Mecneerajywor [place] - [facility], 10/25/2013 07:59:40 08/16/18 90 Caesarean Section completed Pia Cowart [place] - [facility], 10/25/2013 07:59:40 Imaging Results None recorded. Procedure Notes None recorded. Medical Equipment None Reported. Allergies Allergen ID Allergen Name Allergen Category Reaction Reaction Severity Criticality Documentation Date Start Date Code Code System Note Provider Name and Address Organization Details Recorded Time 84894 oxycodone medicatio n itching severe Not available 02/14/2024 7804 RxNorm alisa emmanuel [place] - [facility], 08:06:00 Medications Name Sig Start Date Stop Date Status Note LastModified by Organization Details LastModified Time atorvastati n calcium 80 mg tabs 06/26 completed Not Available Not Available Not Available mirtazapine 15 mg tabs 04/15 completed Not Available Not Available Not Available bupropion hcl sr 200 mg tb12 active Not Available Not Available Not Available omeprazole 20 mg cpdr active Not Available Not Available N ot Available glipizide er 10 mg tb24 04/15 completed Not Available Not Available Not Available januvia 25 mg tabs active Not Available Not Available Not Available metformin hcl 1000 mg tabs 04/15 completed Not Available Not Available Not Available hydroxyzine pamoate 25 mg caps 04/15 completed Not Available Not Available Not Available citalopram hydrobromid e 10 mg tabs active Not Available Not Available Not Available trazodone hcl 50 mg tabs 04/15 completed Not Available Not Available Not Available lisinopril 5 mg tabs 06/26 completed Not Available Not Available Not Available amoxicillin 500 mg capsule TAKE 1 CAPSULE BY MOUTH THREE TIMES A DAY 08/21 completed Not Available Not Available Not Available pioglitazon e 15 mg tablet 11/25 completed Not Available Not Available Not Available terconazole 0.4 % vaginal cream Insert 1 applicato rful every day by vaginal route for 7 days. 01/19 completed Not Available Not Available Not Available bupropion HCl SR 150 mg tablet,12 hr sustained-r elease active Not Available Not Available Not Available atorvastati n 80 mg tablet TAKE 1 TABLET BY MOUTH EVERY DAY active Not Available Not Available No t Available acetaminoph en 325 mg tablet TAKE 1 TABLET BY MOUTH EVERY 4 HOURS NEEDED FOR PAIN 02/10 completed Not Available Not Available Not Available paroxetine 10 mg tablet 10/15 completed Not Available Not Available Not Available venlafaxine 75 mg tablet TAKE 1 TABLET BY MOUTH EVERY DAY WITH FOOD 02/13 completed Not Available Not Available Not Available Carafate 100 mg/mL oral suspension TAKE 10 MLS BY MOUTH 3 TIMES A DAY BEFORE MEALS AND BEDTIME ON AN EMPTY STOMACH 02/10 completed Not Available Not Available Not Available citalopram 40 mg tablet 10/15 completed Not Available Not Available Not Available trazodone 50 mg tablet TAKE 1 TABLET BY MOUTH EVERY DAY AT BEDTIME NEEDED 02/06 completed Not Available Not Available Not Available miconazole nitrate 2 % topical cream APPLY TO AFFECTED AREA TWICE A DAY FOR 14 DAYS 08/21 completed Not Available Not Available Not Available ibuprofen 800 mg tablet TAKE 1 TABLET BY MOUTH EVERY 8 HOURS 02/10 completed Not Available Not Available Not Available fluconazole 150 mg tablet Take 1 tablet every day by oral route at bedtime for 1 day. active Not Available Not Available No t Available glyburide 2.5 mg tablet active Not Available Not Available Not Available citalopram 10 mg tablet 04/15 completed Not Available Not Available Not Available glipizide ER 10 mg tablet, extended release 24 hr 11/25 completed Not Available Not Available Not Available clonazepam 0.5 mg tablet 10/15 completed Not Available Not Available Not Available venlafaxine ER 150 mg capsule,ext ended release 24 hr TAKE 1 CAPSULE BY MOUTH DAILY WITH FOOD. active Not Available Not Available No t Available pioglitazon e 45 mg tablet TAKE 1 TABLET BY MOUTH EVERY DAY active Not Available Not Available No t Available topiramate 25 mg tablet TAKE 1 TABLET BY MOUTH TWICE A DAY 08/21 completed Not Available Not Available Not Available ciprofloxac in 250 mg tablet 01/11 completed Not Available Not Available Not Available sulfamethox azole 800 mg-trimetho prim 160 mg tablet TAKE 1 TABLET BY MOUTH TWICE A DAY FOR 3 DAYS 03/16 completed Not Available Not Available Not Available amoxicillin 875 mg tablet TAKE 1 TABLET BY MOUTH TWICE A DAY FOR 7 DAYS 03/16 completed Not Available Not Available Not Available citalopram 20 mg tablet 04/15 completed Not Available Not Available Not Available lorazepam 0.5 mg tablet TAKE 1 TABLET (0.5 MG) BY MOUTH EVERY DAY NEEDED active Not Available Not Available No t Available estradiol 1 mg tablet TAKE 1 TABLET BY MOUTH EVERY DAY 02/06 completed Not Available Not Available Not Available meclizine 25 mg tablet TAKE 1 TABLET BY MOUTH 3 TIMES A DAY X7 DAYS NEEDED FOR DIZZINESS 02/10 completed Not Available Not Available Not Available cephalexin 500 mg capsule TAKE 1 CAPSULE BY MOUTH EVERY 8 HOURS FOR 7 DAYS 08/21 completed Not Available Not Available Not Available paroxetine 30 mg tablet 11/25 completed Not Available Not Available Not Available paroxetine 20 mg tablet 11/25 completed Not Available Not Available Not Available hyoscyamine sulfate 0.125 mg tablet 04/15 completed Not Available Not Available Not Available Gas Relief (simethicon e) 80 mg chewable tablet CHEW 1 TABLET BY MOUTH THREE TIMES A DAY AFTER MEALS AND MEDTIME NEEDED FOR GAS active Not Available Not Available No t Available metformin 1,000 mg tablet TAKE 1 TABLET BY MOUTH TWICE A DAY active Not Available Not Available No t Available buspirone 10 mg tablet 10/15 completed Not Available Not Available Not Available progesteron e micronized 200 mg capsule TAKE 1 CAPSULE BY MOUTH EVERYDAY AT BEDTIME 02/10 completed Not Available Not Available Not Available omeprazole 20 mg capsule,del ayed release 02/10 completed Not Available Not Available Not Available lisinopril 5 mg tablet TAKE 1 TABLET BY MOUTH EVERY DAY 02/10 completed Not Available Not Available Not Available gabapentin 100 mg capsule TAKE 1-3 CAPSULES BY MOUTH AT BEDTIME active Not Available Not Available No t Available lorazepam 1 mg tablet 11/25 completed Not Available Not Available Not Available methylpredn isolone 4 mg tablets in a dose pack TAKE 6 TABLETS ON DAY 1 DIRECTED ON PACKAGE AND DECREASE BY 1 TAB EACH DAY FOR A TOTAL OF 6 DAYS 02/10 completed Not Available Not Available Not Available ferrous sulfate 325 mg (65 mg iron) tablet,emily yed release TAKE 1 TABLET BY MOUTH EVERY DAY active Not Available Not Available No t Available ondansetron 4 mg disintegrat ing tablet DISSOLVE 1 TABLET BY MOUTH 3 TIMES A DAY X 5 DAYS NEEDED FOR NAUSEA & VOMITING 02/10 completed Not Available Not Available Not Available fluoxetine 20 mg capsule TAKE ONE CAPSULE BY MOUTH DAILY active Not Available Not Available No t Available dicyclomine 10 mg capsule 01/11 completed Not Available Not Available Not Available glipizide 5 mg tablet Take 1 tablet twice a day by oral route. active Not Available Not Available No t Available amoxicillin 875 mg-potassiu m clavulanate 125 mg tablet TAKE 1 TABLET TWICE A DAY UNTIL GONE. 02/06 completed Not Available Not Available Not Available oxycodone 5 mg tablet TAKE 1 TABLET BY MOUTH EVERY 6 HOURS NEEDED FOR PAIN 02/10 completed Not Available Not Available Not Available DentaGel 1.1 % PLACE GEL IN TRAYS PRIOR TO INSERTING ,WEAR FOR 3 HRS active Not Available Not Available No t Available bupropion HCl SR 200 mg tablet,12 hr sustained-r elease 04/15 completed Not Available Not Available Not Available escitalopra m 10 mg tablet 12/15 completed Not Available Not Available Not Available escitalopra m 20 mg tablet TAKE 1 TABLET BY MOUTH EVERY DAY 08/21 completed Not Available Not Available Not Available Asprin Ec Low Dose 81 mg tablet,emily yed release Take 1 tablet every day by oral route. active Not Available Not Available No t Available bupropion HCl XL 300 mg 24 hr tablet, extended release 11/25 completed Not Available Not Available Not Available bupropion HCl XL 150 mg 24 hr tablet, extended release 11/25 completed Not Available Not Available Not Available escitalopra m 5 mg tablet 08/21 completed Not Available Not Available Not Available nitrofurant oin monohydrate /macrocryst als 100 mg capsule TAKE 1 CAPSULE BY MOUTH TWICE A DAY FOR 5 DAYS 03/16 completed Not Available Not Available Not Available iron active Not Available Not Availa ble Not Available Aspir-81 active Not Available Not Avai lable Not Available lisinopril active Not Available Not Av ailable Not Available metformin active Not Available Not Chula ilable Not Available Wellbutrin active Not Available Not Av ailable Not Available BD Ultra-Fine Short Pen Needle 31 gauge x 12/29 active Not Available Not Available Not Available aripiprazol e 2 mg tablet TAKE 1 TABLET BY MOUTH EVERY DAY 02/13 completed Not Available Not Available Not Available Januvia 25 mg tablet 12/24 completed Not Available Not Available Not Available Januvia 50 mg tablet 11/25 completed Not Available Not Available Not Available peg 3350-electr olytes 236 gram-22.74 gram-6.74 gram-5.86 gram solution USE DIRECTED 02/06 completed Not Available Not Available Not Available Lantus Solostar U-100 Insulin 100 unit/mL (3 mL) subcutaneou s pen 02/10 completed Not Available Not Available Not Available Lantus Solostar U-100 Insulin 02/10 completed Not Available Not Available Not Available GaviLyte-N 420 gram oral solution 06/26 completed Not Available Not Available Not Available Purelax 17 gram/dose oral powder TAKE 17 GM BY MOUTH DAILY 02/10 completed Not Available Not Available Not Available Nexplanon 68 mg subdermal implant Inject 1 implant by subcutane ous route. 10/15 completed Not Available Not Available Not Available Jardiance 10 mg tablet TAKE 1 TABLET BY MOUTH EVERY DAY IN THE MORNING 02/13 completed Not Available Not Available Not Available Jardiance 25 mg tablet TAKE 1 TABLET BY MOUTH EVERY MORNING 02/13 completed Not Available Not Available Not Available Trulicity 1.5 mg/0.5 mL subcutaneou s pen injector INJECT 0.5 ML SUBCUTANE OUSLY EVERY WEEK. ROTATE INJECTION SITES active Not Available Not Available No t Available Trulicity 0.75 mg/0.5 mL subcutaneou s pen injector INJECT 0.5 ML SUBCUTANE OUSLY EVERY WEEK 01/11 completed Not Available Not Available Not Available Vraylar 1.5 mg capsule TAKE 1 CAPSULE BY MOUTH EVERY DAY active Not Available Not Available No t Available Readi-Cat 2 2 % (w/v) oral suspension 02/10 completed Not Available Not Available Not Available Shingrix (PF) 50 mcg/0.5 mL intramuscul ar suspension, kit active Not Available Not Available Not Available Plenvu 140 gram-9 gram-5.2 gram powder packs TAKE 3 PACKET BY MOUTH DIRECTED FOLLOW INSTRUCTI ONS PROVIDED BY DOCTOR IN OFFICE 02/06 completed Not Available Not Available Not Available FreeStyle Arlet 2 Sensor kit USE TO MONITOR GLUCOSE FOR DX TYPE 2 DIABETES MELLITUS active Not Available Not Available No t Available FreeStyle Arlet 2 [place] USE DIRECTED FOR DX TYPE 2 DIABETES MELLITUS active Not Available Not Available No t Available Trulicity 3 mg/0.5 mL subcutaneou s pen injector 0.5 ML SUBCUTANE OUS INJECTION EVERY WEEK,INST R:ROTATE INJECTION SITES active Not Available Not Available No t Available COVID-19 At-Home Test kit FOLLOW INSTRUCTI ONS INCLUDED WITH THE PACKAGE. active Not Available Not Available No t Available Auvelity 45 mg-105 mg tablet, extended release TAKE 1 TABLET BY MOUTH TWICE A DAY active Not Available Not Available No t Available Vitals Date Recorded Body height Body mass index (BMI) Body weight Body temperature Heart rate Systolic And Diastolic Provider Name and Address Organization Details Last Updated DateTime 147.32 cm 21.9 kg/m2 52268.7 6 g 97.3 [degF] 82 /min 167/77 mm[Hg] Pia Cowart MA - [facility], 11:15:38 Date Recorded Body height Body mass index (BMI) Body weight Heart rate Systolic And Diastolic Provider Name and Address Organization Details Last Updated DateTime 02/10/2023 147.32 cm 29.5 kg/m2 14165.52 g 81 /min 146/52 mm[Hg] Arlen Silva [facility], 02/10/2023 08:18:57 Date Recorded Body height Body mass index (BMI) Body weight Body temperature Heart rate Systolic And Diastolic Provider Name and Address Organization Details Last Updated DateTime 4 147.32 cm 22.6 kg/m2 51446.6 9 g 98 [degF] 86 /min 128/67 mm[Hg] alisa Mcdaniels in [facility], 08:04:52 Date Recorded Body height Body mass index (BMI) Body weight Heart rate Systolic And Diastolic Provider Name and Address Organization Details Last Updated DateTime 03/19/2025 147.32 cm 21.8 kg/m2 93068.32 g 84 /min 134/52 mm[Hg] Pia Mcdaniels in [facility], 03/19/2025 08:43:52 Date Recorded Body height Body mass index (BMI) Body weight Body temperature Heart rate Systolic And Diastolic Provider Name and Address Organization Details Last Updated DateTime 147.32 cm 21.8 kg/m2 35359.0 4 g 97.7 [degF] 90 /min 153/67 mm[Hg] Pia Mcdaniels in [facility], 10:24:58 Social History Question Answer Notes LastModified by Organizat ion Details LastModified Time Tobacco Smoking Status Never Smoker Not Available [facility] 06/18/2020 03:19:38 What Is Your Level Of Caffeine Consumption? Moderate [id number] Information not available 06/18/2020 In The 14 Days Before Symptom Onset, Have You Had Close Contact With A Laboratory-confirm ed COVID-19 While That Case Was Ill? No Information n ot available 02/06/2022 In The 14 Days Before Symptom Onset, Have You Had Close Contact With A Person Who Is Under Investigation For COVID-19 While That Person Was Ill? No Information not available 02/06/2022 Have You Been To An Area Known To Be High Risk For COVID-19? No Information not available 02/06/2022 What Type Of Diet Are You Following? REGULAR [id number] Information n ot available 06/18/2020 Which Illicit Or Recreational Drugs Have You Used? No [id number] Information not available 06/18/2020 Do You Reside In Or Have You Traveled To An Area Where Ebola Virus Transmission Is Active? No [id number] Information not available 06/18/2020 Education 2 Year College Information not available 10/25/2013 What Is The Highest Grade Or Level Of School You Have Completed Or The Highest Degree You Have Received? [id number] Information not available 02/06/2022 Who Is Your Employer? Formerly [employer] Information not available 02/06/2022 How Many Days In The Past Year Have You Had A Heavy Drinking Consumption (4+ Female, 5+ Male)? 0 Information no t available 04/15/2016 Are There Any Guns Present In Your Home? No Information not available 02/06/2022 High Number Of Sexual Partners Yes Information not available 03/10/2016 To Which Gender Do You Self-identify? Female Information n ot available 03/10/2016 Marital Status Informatio n not available 10/25/2013 What Was The Date Of Your Most Recent Tobacco Screening? 03/19/2025 Information not available 03/19/2025 What Is Your Relationship Status? Information not available 02/06/2022 Are You Sexually Active? Yes [id number] Information not available 06/18/2020 How Much Tobacco Do You Smoke? No [id number] Information not available 06/18/2020 General Stress Level Medium Information not available 02/10/2021 How Many Years Have You Smoked Tobacco? 0 [id number] Information not available 06/18/2020 Have You Recently (within The Last 12 Weeks, Or During A Current ) Traveled To Or Lived In A Zika-affected Area? No Information not available 03/10/2016 Sex: Female Functional Status Question Answer Note LastModified by Organizat ion Details LastModified Time Do you use any illicit or recreational drugs? No Information not available 02/06/2022 Do you or have you ever used any other forms of tobacco or nicotine? No Information not available 02/06/2022 What is your level of alcohol consumption? None Very rare Information not available 02/06/2022 Do you or have you ever used smokeless tobacco? Never used smokeless tobacco [id number] Information not available 06/18/2020 Are you currently employed? Yes Information not available 02/06/2022 What is your occupation? nurse Information not available 02/06/2022 Do you or have you ever used e-cigarettes or vape? Never used electronic cigarettes [id number] Information not available 06/18/2020 What is your exercise level? None Information not available 02/06/2022 Mental Status Question Answer Note LastModified by Organization D etails LastModified Time Do you feel stressed (tense, restless, nervous, or anxious, or unable to sleep at night)? [id number] Information not available 02/06/2022 Family History Relationship Description Onset Age of this Age Resolved Age Notes LastModified by Organization Details LastModified Time Father Problem cancer ,kidne y Not available 12/09/2015 09:40:15 Father Alzheimer's disease Not available 11/15 09:40:15 Mother Heart disease Not available 11/15 09:40:15 Mother Cerebrovascu lar accident stroke Not available 0 12/09/2015 09:40:15 Mother Diabetes mellitus Not available 11/15 09:40:15 Mother Hypertensive disorder Not available 11/15 09:40:15 Brother Diabetes mellitus x2 Not available 11/15 09:40:15 Maternal Grandmother Heart disease Not available 11/15 09:40:15 Maternal Grandfather Heart disease Not available 11/15 09:40:15 Paternal Grandmother Malignant neoplasm of colon Not available 11/15 09:40:15 Paternal Grandfather Alzheimer's disease Not available 11/15 09:40:15 Unspecified Relation Problem cousin ,kidne y ca Not available 12/09/2015 09:40:15 Medical History Condition Response Anesthesia complications N High Blood Pressure Y Candidate for MyRisk panel N Autoimmune Condition N Kidney or Bladder Problems N Thyroid Problems N Depression Y Lung Disease N GI Problems Y Defects or Inherited Disease N Anemia Y History of Ovarian Cancer N History of Breast Cancer N DIA exposure N BRCA testing in past N Osteopenia N Psychiatric Illness N Anxiety Disorder Y Diabetes Y Arthritis N Headaches or Migraines N Infertility N Asthma N History of Cancer Y Endometriosis N Hepatitis N Heart Disease N Hypertension Y Osteoporosis N Gynecological History Statement/Question Response If Post Menopausal, Age at Menopause 56 Most Recent Bone Density Menses Monthly N Age at Menarche 12 Current Control Method None Most Recent Mammogram 07/04/2024 Age at First Child 22 Hormone Replacement Therapy Y Obstetrics History GPAL:G 3 P 2 0 1 2 Type Value Full Term 2 Spontaneous 1 Living 2 Total 3 Immunizations Vaccine Type Date Status Note Provider Nam e and Address Organization Details Recorded Time Influenza, split virus, trivalent, preservative 3 completed RAVI Brown in [facility], 02/10/2023 08:18:32 Influenza, split virus, trivalent, preservative 4 completed RAVI Brown in [facility], 02/10/2023 08:18:31 Influenza, split virus, trivalent, preservative 5 completed RAVI Cook in [facility], 11/11/2015 08:50:58 Influenza, split virus, quadrivalent, preservative 6 completed RAVI Mooney in [facility], 11/24/2016 09:30:55 Influenza, split virus, quadrivalent, preservative 7 completed RAVI Mooney in [facility], 10/15/2017 09:53:13 Influenza, split virus, quadrivalent, preservative 8 completed RAVI Brown in [facility], 02/10/2023 08:18:31 Influenza, split virus, quadrivalent, preservative 9 completed RAVI Brown in [facility], 02/10/2023 08:18:31 COVID-19, mRNA, LNP-S, PF, 30 mcg/0.3 mL dose 1 completed Arlen Brit null, [place] - [facility], 02/10/2023 08:18:31 COVID-19, mRNA, LNP-S, PF, 30 mcg/0.3 mL dose 1 completed Arlen Brit null, [place] - [facility], 02/10/2023 08:18:31 Influenza, split virus, quadrivalent, preservative 0 completed Arlen Brit null, [place] - [facility], 02/10/2021 08:25:22 Influenza, split virus, quadrivalent, preservative 1 completed Arlen Perea null, [place] - [facility], 02/10/2023 08:18:31 Influenza, MDCK, quadrivalent, PF 2 completed Arlen Perea null, [place] - [facility], 02/10/2023 08:18:31 Influenza, MDCK, quadrivalent, preservative 9 completed Arlen Perea null, [place] - [facility], 02/10/2023 08:18:31 zoster recombinant 0 completed Arlen Brit null, [place] - [facility], 02/10/2023 08:18:31 zoster recombinant 0 completed Arlen Brit null, [place] - [facility], 02/10/2023 08:18:31 COVID-19, mRNA, LNP-S, PF, 30 mcg/0.3 mL dose 1 completed Arlen Perea null, [place] - [facility], 02/10/2023 08:18:31 Tdap 1 completed Arlen Brit null, [place] - [facility], 02/10/2023 08:18:31 Influenza, split virus, trivalent, preservative 4 completed Arlen Brit null, [place] - [facility], 02/10/2023 08:18:31 Influenza, split virus, trivalent, preservative 1 completed Arlen Brit null, [place] - [facility], 02/10/2023 08:18:31 Influenza, split virus, trivalent, preservative 3 completed RAVI Brown in [facility], 02/10/2023 08:18:31 Influenza, split virus, quadrivalent, PF 0 completed RAVI Brown in [facility], 02/10/2023 08:18:32 Influenza, MDCK, trivalent, PF 4 completed Not Available [facility] 03/19/2025 08:41:44 Influenza, split virus, quadrivalent, PF 3 completed Not Available [facility] 03/19/2025 08:41:44 COVID-19, mRNA, LNP-S, bivalent, PF, 30 mcg/0.3 mL dose 2 completed Not Available [facility] 03/19/2025 08:41:44 COVID-19, mRNA, LNP-S, PF, 50 mcg/0.5 mL 3 completed Not Available [facility] 03/19/2025 08:41:44 Pneumococcal conjugate PCV20, polysaccharide [id number] conjugate, adjuvant, PF 3 completed Not Available [facility] 03/19/2025 08:41:44 RSV, recombinant, protein subunit RSVpreF, adjuvant reconstituted, 0.5 mL, PF 3 completed Not Available [facility] 03/19/2025 08:41:44 COVID-19, mRNA, LNP-S, PF, stephanie-sucrose, 30 mcg/0.3 mL 4 completed Not Available [facility] 03/19/2025 08:41:44 Past Encounters Encounter ID Performer Location Encounter Start Date Encounter Closed Date Diagnosis/Indication Diagnosis SNOMED-CT Code Diagnosis ICD10 Code Diagnosis IMO Codes Diagnosis Note [id number] MD CITLALLI Mccauley MD [address] [facility] [address] [place] [address] 10/25/2013 08:07:19 10/25/2013 10:54:09 Specialized medical examination [id number] Screening mammography 93318140 Menopausal syndrome [id number] MD CITLALLI Mccauley MD [address] [place] [address],[place] [address] 09/20/2014 09:25:04 09/20/2014 16:10:40 Amenorrhea [id number] MD CITLALLI Mccauley MD [address] [place] [address],[place] [address] 09/27/2014 13:21:28 09/27/2014 16:00:18 Candidal vulvovaginitis [id number] [id number] MD CITLALLI Mccauley MD [address] [place] [address],[place] [address] 11/08/2014 09:43:25 11/08/2014 13:21:49 Specialized medical examination [id number] Screening for malignant neoplasm of rectum 510842923 Screening mammography 75052057 Candidal vulvovaginitis 11049731 [id number] MD CITLALLI Mccauley MD [address] [place] [address], [place] [address] 01/15/2015 13:40:38 01/15/2015 15:09:11 Implantation of subcutaneous contraceptive [id number] MD CITLALLI Mccauley MD [address] [place] [address], [place] [address] 01/28/2015 14:03:26 01/28/2015 15:33:52 Removal of intrauterine device 49073494 Candidal vulvovaginitis [id number] MD CITLALLI Mccauley MD [address] [place] [address], [place] [address] 11/11/2015 08:38:57 11/11/2015 14:42:35 Specialized medical examination 47163869 Z01.419 Screening for malignant neoplasm of rectum 964642852 Z12.12 Screening mammography 24 539865 Z12.31 Candidal vulvovaginitis 72779111 B37.3 [id number] MD CITLALLI Mccauley MD [address] [place] [address],[place] [address] 11/29/2015 08:38:18 11/29/2015 12:10:54 Cervicovaginal cytology: Low grade squamous intraepithelial lesion 772647400 R87.612 [id number] MD CITLALLI Mccauley MD [address] [place] [address],[facility] [place] [place] [address] 12/09/2015 08:34:56 12/09/2015 13:01:15 Cytologic finding [id number] R87.612 [id number] MD CITLALLI Mccauley MD [address] [place] [address],[facility] [place] [place] [address] 03/10/2016 15:24:36 03/10/2016 16:02:31 Cervicovaginal cytology: Low grade squamous intraepithelial lesion 453161640 R87.612 [id number] MD CITLALLI Mccauley MD [address] [place] [address],[facility] [place] [address] 04/15/2016 09:08:59 04/15/2016 10:37:11 Cytologic finding [id number] R87.612 [id number] MD CITLALLI Mccauley MD [address] [place] [address],[facility] [place] [address] 06/26/2016 14:41:57 06/26/2016 15:52:44 Candidal vulvovaginitis 85372695 B37.3 Type 2 soco betes mellitus without complication 939242430 E11.9 [id number] MD CITLALLI Mccauley MD [address] [place] [address],[facility] [place] [address] 11/24/2016 09:23:13 11/24/2016 15:53:35 Specialized medical examination 77180431 Z01.419 Screening for malignant neoplasm of rectum 750029517 Z12.12 Screening mammography 24 779413 Z12.31 Type 2 soco betes mellitus without complication 415144409 E11.9 [id number] MD CITLALLI Mccauley MD [address] [place] [address],[facility] [place] [place] [address] 12/24/2016 09:16:47 12/24/2016 10:50:07 Menopausal syndrome 327315299 N95.1 [id number] MD CITLALLI Mccauley MD [address] [place] [address],[place] [address] 02/17/2017 09:38:56 02/17/2017 12:03:50 Candidal vulvovaginitis 08630699 B37.3 Type 2 soco betes mellitus 17987116 E11.9 Menopausal syndrome 1237 79887 N95.1 [id number] MD CITLALLI Mccauley MD [address] [place] [address], [place] [address] 02/23/2017 13:41:04 02/23/2017 15:59:17 Menopausal syndrome 565259064 N95.1 Subcutaneo us contraceptive implant present 612912306 Z30.8 [id number] MD CITLALLI Mccauley MD [address] [place] [address], [place] [address] 10/15/2017 09:43:09 10/15/2017 10:34:59 Candidal vulvovaginitis 92638723 B37.3 Depressive disorder 3548 9007 F32.1 Anxiety disorder 7289663 06 F41.9 Type 2 soco betes mellitus 47888932 E11.9 [id number] MD CITLALLI Mccauley MD [address] [place] [address], [place] [address] 11/25/2017 09:15:41 11/25/2017 11:27:31 Specialized medical examination 10638021 Z01.419 Screening for malignant neoplasm of rectum 624745662 Z12.12 Screening mammography 24 166690 Z12.31 Menopausal syndrome 1237 67132 N95.1 Vaginal discharge 955927 006 N89.8 Cyst of ovary 28956998 N 83.01 [id number] MD CITLALIL Mccauley MD [address] [place] [address], [place] [address] 12/10/2017 14:40:42 12/10/2017 15:58:35 Candidal vulvovaginitis 17635469 B37.3 Type 2 soco betes mellitus 54991799 E11.9 [id number] MD CITLALLI [facility]ule[facility] [address] [facility] [place] [address] 01/19/2018 08:19:49 01/19/2018 11:52:22 Pelvic mass [id number] R19.00 [id number] MD CITLALLI Mccauley MD [address] [place] [address] [place] [address] 11/25/2018 08:45:03 11/25/2018 10:46:19 Menopausal syndrome [id number] N95.1 Specialize d medical examination [id number] Z01.419 Screening for malignant neoplasm of rectum 856268363 Z12.12 Screening mammography 24 971150 Z12.31 [id number] MD CITLALLI Mccauley MD [address] [place] [address] [place] [address] 12/15/2018 09:20:58 12/15/2018 11:45:04 Cytologic finding [id number] R87.612 [id number] MD CITLALLI Mccauley MD [address] [place] [address] [place] [address] 12/27/2018 08:29:11 12/27/2018 10:44:14 Postmenopausal bleeding [id number] N95.0 [id number] MD CITLALLI Mccauley MD [address] [place] [address] [place] [address] 01/12/2020 08:58:24 01/12/2020 09:54:14 Specialized medical examination [id number] Z01.419 Screening for malignant neoplasm of rectum 844815387 Z12.12 Screening mammography 24 967282 Z12.31 Menopausal syndrome 1237 03298 N95.1 [id number] MD CITLALLI Mccauley MD [address] [place] [address] [place] [address] 02/10/2021 08:18:57 02/10/2021 13:08:11 Specialized medical examination [id number] Z01.419 Screening for malignant neoplasm of rectum 469222803 Z12.12 Screening mammography 24 610336 Z12.31 Malignant neoplasm of uterus 177977701 C55 [id number] MD CITLALLI Mccauley MD [address] [place], [place] [address] [place] [address] 02/06/2022 09:00:06 02/06/2022 09:48:44 Specialized medical examination 27249883 Z01.419 Screening for malignant neoplasm of rectum 507168681 Z12.12 Screening mammography 24 978071 Z12.31 Menopausal syndrome 1237 83777 N95.8 History of malignant neoplasm of uterine body 206967951 Z85.42 [id number] MD CITLALLI Mccauley MD [address] [place] [address] [place] [address] 06/05/2022 11:43:46 06/05/2022 14:20:02 Osteoporosis 03733901 M81.0 Type 2 soco betes mellitus 43917611 E11.9 History of malignant neoplasm of uterine body 047449724 Z85.42 [id number] MD CITLALLI Mccauley MD [address] [place] [address] [place] [address] 02/10/2023 08:15:26 02/10/2023 09:05:27 Specialized medical examination 82216561 Z01.419 Screening for malignant neoplasm of rectum 967756507 Z12.12 Screening mammography 24 308023 Z12.31 [id number] MD CITLALLI Mccauley MD [address] [place] [address] [place] [address] 02/14/2024 08:01:41 02/14/2024 09:57:48 Specialized medical examination 05566367 Z01.419 Screening for malignant neoplasm of rectum 887378608 Z12.12 Screening mammography 24 283421 Z12.31 Menopausal syndrome 1237 06674 N95.8 [id number] MD CITLALLI Mccauley MD [address] [place], [place] [address] [address] 03/24/2024 10:21:31 03/24/2024 11:45:04 Cellulitis of skin 600562262 L03.90 [id number] MD CITLALLI Mccauley MD [address] [place] [address] [place] [address] 08/21/2024 11:11:56 08/21/2024 15:48:47 Hematoma of right breast [id number] N64.89 [id number] MD CITLALLI Mccauley MD [address] [facility] [address] [place] [address] 03/19/2025 08:39:52 03/19/2025 11:18:55 Specialized medical examination 40354821 Z01.419 Screening for malignant neoplasm of rectum 672208996 Z12.12 Screening mammography 24 300215 Z12.31 Health Concerns Section Related Observation LastModified by Organization Detai ls LastModified Time None Recorded Concern Status LastModified by Organization Details LastModified Time None Recorded Advance Directives Directive None Recorded Payers Insurance Date Sequence Insurance Name Policy Number Policy Mann Covered Member ID Mann Member ID Guarantor Name 03/16/[address] [place] [address] ([facility] [id number] Melina Peoples [id number] Melina Peoples Notes Date Note Type Note Provider Name and Address Organization Details Recorded Time 02/10/2023 text/html She is here for annual, had acute renal failure and was in hospital 2 months ago in the ICU, they felt it was due to taking ibuprophen. she had dialysis. Was out of work for 4 weeks, just went back to work 2 days ago. IS feeling better. Her SALES MANAGER [place] at the oncology office advised her to stop the oral progesterone. She is not sleeping at all now. Note from 2021: She is here for annual exam, doing well after her hysterectomy for mixed call endometrial cancer.Her electronic scale subassembler oncologist approved for her to continue her oral progesterone as she needs it to sleep. Citlalli Perry MD [address] [facility],[address], [place], [address], [place] [facility], 02/10/2023 08:43:06 02/14/2024 text/html She is here for annual, has started trulicity, as the Jardiance was causing dizziness, this seems to be working better for her.She had a hysterectomy with Dr. 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 She started having 2 to 3 hot flashes a day a few months ago, it has decreased to a few a week, she is unsure why. _ Note from 2022: She is here for annual, had acute renal failure and was in hospital 2 months ago in the ICU, they felt it was due to taking ibuprophen. she had dialysis. Was out of work for 4 weeks, just went back to work 2 days ago. IS feeling better.Her SALES MANAGER [place] at the oncology office advised her to stop the oral progesterone. She is not sleeping at all now. Citlalli Perry MD [address], [place], [address], [employer] [facility], 02/14/2024 08:32:08 03/24/2024 text/html She noted a bump on her vulva 2 days ago, it is slowly getting larger. It is slightly tender, noticeable . She sarah not remember any injury in this area. she has been scratching her inner thighs bilaterally due to bug bites. Citlalli Perry MD [address] [facility],[address], [place], [address], [facility], 03/24/2024 11:04:55 08/21/2024 text/html She is here at the request of her PCP. She called their office ,and she informed then she had a hematoma on her right breast following her breast biopsy done at [facility] on 08/01/24, and she was advised to call her electric screw driver operator. She notes the mass is the same size now as it was 3 weeks ago. Denies fever or chills. Citlalli Perry MD [address], [place], [address], [facility] [facility], 08/21/2024 12:30:50 03/19/2025 text/html She is here for annual, it is now 5 years since her mixed cell carcinoma endometrial cancer, she is doing well. Note from 2023: She is here for annual, has started trulicity, as the Jardiance was causing dizziness, this seems to be working better for her.She had a hysterectomy with Dr. 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 Citlalli Perry MD [address] [facility],[address], [place], [address], [place] [facility], 03/19/2025 09:27:38 OBGyn Episode No OBEpisode recorded.
--- OUTSIDE RECORDS SUMMARY | 2025-06-14 10:52 | XMS_ITS | Encounter Summary ---
Author Organization [facility], Address [address] [place] [address] Phone Care Team Providers Care Dip Stand Loader Name Role Phone Steven Bowling MD Primary Care Provider [phone] Encounter Details Date Type Department Care Team (Late st Contact Info) Description 02/04/2023 Documentation Only [facility], [address] [place] [address] Steven Bowling MD [address] [place] [address] [place] [phone] Social History Tobacco Use Types Packs/Day Years [...] on filedocumented in this encounter Care Teams Dip Stand Loader Relationship Specialty Start Date End Date Steven Bowling MD [address] [place] [address] [place] [phone] PCP - General Nephrology 02/03/23 documented as of this encounter
== END 2025-06-14 09:28 | disposition home or self-care (01) ==
LOC: HO.MAMMO 09:27
PROVIDERS: PCP Internal Medicine; Visit Provider Internal Medicine
DX: Z12.31 Encounter for screening mammogram for malignant neoplasm of breast (principal)
CPT/HCPCS: 77063; 77067

== ENCOUNTER → 2025-06-14 09:30 | Outpatient (BNV) | payer OTHER, SELFPAY | PROVIDERS: PCP Internal Medicine; Visit Provider Radiology Body Imaging | DX: Z12.31 Encounter for screening mammogram for malignant neoplasm of breast (principal) | CPT/HCPCS: 77063; 77067 ==